=== PATIENT | male | born 2005 | race African-American/Black ===

== ENCOUNTER 2024-10-16 11:44 | Emergency (ER) | payer SELFPAY ==
[~2024-10-16] VITALS: Ht 170.2 cm; Wt 78.0 kg
[2024-10-16 11:46] VITALS: O2SAT 98
[2024-10-16] MEDS: ONDANSETRON 4MG ODT PO STA (12:36)
[2024-10-16 12:40] LABS: DIFFERENTIAL COMMENT 0; EOSINOPHILS % 1.3 % (0.0-5.0); HEMATOCRIT. 44.8 % (42.0-52.0); LYMPHOCYTES % 48.5 % (20.0-50.0); MEAN CORPUSCULAR HEMOGLOBIN 30.6 pg (28.0-32.0); MEAN CORPUSCULAR HGB CONC 33.4 g/dL (31.0-37.0); MEAN CORPUSCULAR VOLUME 91.5 fL (80.0-94.0); MEAN PLATELET VOLUME 7.6 fl (7.4-10.4); MONOCYTES % 9.8 % (2.0-8.0); NEUTROPHILS % 39.4 % (40.0-76.0); PLATELET 300 x1000/uL (130-400); RED CELL DISTRIBUTION WIDTH 13.6 % (11.6-14.6); WHITE BLOOD COUNT 3.8 x1000/uL (4.5-11.0)
[2024-10-16 12:47] LABS: CHLORIDE 105 mEq/L (98-107); POTASSIUM 4.3 mEq/L (3.5-5.1); SODIUM 139 mEq/L (136-145)
[2024-10-16 12:48] LABS: CARBON DIOXIDE 26 mEq/L (21-32)
[2024-10-16 12:49] LABS: CALCIUM 9.7 mg/dL (8.7-10.4)
[2024-10-16 12:53] LABS: CREATININE 1.3 mg/dL (0.6-1.3); GLUCOSE 89 mg/dL (70-105)
[2024-10-16 12:54] LABS: UREA NITROGEN BLOOD 13 mg/dL (9-23)
[2024-10-16] MEDS ORDERED: OMEP20TA23 MT (13:23)
[2024-10-16] MEDS ORDERED: ONDA-239 PO (13:23)
[2024-10-16 13:32] VITALS: BP 119/70; PULSE 63; RESP 17; TEMP 36.8; O2SAT 98
== END 2024-10-16 13:33 | disposition home or self-care (01) ==
LOC: ER 11:55
DX: R11.0 Nausea (principal); Z79.899 Other long term (current) drug therapy
CPT/HCPCS: 99283; 80048; 83690; 85025; 36415; Q0162